=== PATIENT | female | born 2000 | race Caucasian/White ===

== ENCOUNTER 2022-07-02 21:30 | Observation (INO) ==
--- NOTE | 2022-07-03 00:29 | DR.SOBA ---
HPI Time Seen Time Seen by Provider: 07/03/22 00:29 Primary Care Physician Primary Care Physician: Kiersten HPI Comment HPI Comment: A 21 y/o female presenting with a feeling of not feeling good and a feeling that she may pass out at about 2100 hrs. this eveninng. She denies tinnitus, palpitations, nausea or vomiting. But she did have SOB. Complaints Chief Complaint:: "Short of breath, feel like i mite faint, dont feel normal" COVID-19 Coronavirus risk:travel/contact w/high risk person: No Has patient experienced Coronavirus symptoms: No Coronavirus symptoms experienced: Shortness of Breath Reviewed Nurses Notes Reviewed: Yes Source History Provided: Patient Mode of Arrival Mode of Arrival: Ambulatory Timing Onset of Chief Complaint: 07/02/22 Context Onset:: At Rest PE Risk Factors:: Control Pills History of:: None Currently on:: Neither Prehospital Care:: None Associated Signs and Symptoms Associated Signs and Symptoms: denies None, Fever, Wheeze, Cough, Nasal Congestion, Sore Throat, Hemoptysis, Chest Pain, Leg Swelling, Calf Pain, Anxiety, Numbness, Perioral Numbness, Hands Numbness or Feet Numbness PMH PMH Past Medical History: Yes Past Medical History: Anxiety Past Medical History Comment: ADHD Past Surgical History: Yes Surgical History: Appendectomy Family History History of Family Medical Conditions: Yes Family Medical History: [place] Social History Does patient currently use any type of tobacco product: Yes Type of Tobacco Use: VAPES Does any household member use tobacco: No Alcohol Use: None Do you use any recreational Drugs:: No Lives With: Mom Lives Where: Home Travel Risk Coronavirus risk:travel/contact w/high risk person: No Has patient experienced Coronavirus symptoms: No Infectious screening In the last 2 months have you had wt loss of >10#?: NO Have you had fever, night sweats or hemotysis?: No Have you traveled outside the country in the last 6 months?: No Isolation: Standard ROS Review of Systems Constitutional: No Symptoms Reported and Diaphoresis Eyes: No Symptoms Reported ENTM: No Symptoms Reported Respiratoy: No Symptoms Reported Cardiovascular: No Symptoms Reported Gastrointestinal/Abdominal: No Symptoms Reported Genitourinary: No Symptoms Reported Neurological: Dizziness Musculoskeletal: No Symptoms Reported Integumentary: No Symptoms Reported Hematologic/Lymphatic: No Symptoms Reported Endocrine: No Symptoms Reported Psychiatric: No Symptoms Reported All Other Systems: Reviewed and Negative PE Vital Signs Vitals: Temperature 98.1 F Pulse Rate 72 Respiratory Rate 20 Blood Pressure [Left Arm] 121/69 Blood Pressure 122/73 O2 Sat by Pulse Oximetry 99 General Limitations: No Limitations General Appearance: Alert and In No Apparent Distress Head Head Exam: Normal Inspection, Atraumatic and Normocephalic Eyes Eye exam: Normal Appearance and EOMI ENT ENT Exam: Normal Exam, Normal Oropharynx, Normal External Ear Exam and Mucous Membranes Moist Neck Neck Exam: Normal Inspection, Full ROM and Trachea Midline Chest Chest Inspection: Normal Inspection Respiratory Respiratory Exam: Normal Lung Sounds Bilat Cardiovascular Cardiovascular Exam: Regular Rate, Normal Rhythm, Normal Heart Sounds, +S1 and +S2 Abdominal Exam Abdominal Exam: Normal Inspection, Normal Bowel Sounds and Soft Extremities Extremities Exam: Normal Inspection and Full ROM Back Back Exam: Normal Inspection and Full ROM Neurologic Neurological Exam: Alert and Oriented X3 Psychiatric Psychiatric Exam: Normal Affect and Normal Mood Skin Skin Exam: Dry, Intact and Normal Color COURSE Treatment Treatment: BAsed on the Brain CT Scan recommendations, I had inquired about obtaining an MRI of the Brain but ti is not possible to get one done at this time of the day. I spoke to correctional officer captain Physician (Dr. Yañez) and he agreed to admit her to [facility] so we can obtain the Brain MRI done later this morning. I did discuss the CT Scan report and recommendations with the patient and her mother. Reevaluation 1st: Resolved Education/Counseling Education/Counseling: Patient, Family, Education and Counseling Educated On: Treatment, Diagnosis, Prognosis and Needs for Follow Up ROR Labs Reviewed Laboratory: SARS-CoV-2 (PCR) Negative (NEGATIVE) 07/02/22 22:36 Influenza Type A (PCR) Negative (NEGATIVE) 07/02/22 22:36 Influenza Type B (PCR) Negative (NEGATIVE) 07/02/22 22:36 RSV (PCR) Negative (NEGATIVE) 07/02/22 22:36 S. pyogenes (TEM-PCR) Not detected (NOT DETECT) 07/02/22 22:36 Opioid Opioid Risk Tool Age (Compa box if 16-45): No History of Preadolescent Sexual Abuse: No Total: 0 Total Score Risk Category: Low Risk Copyright: Alcides DARNELL predicting aberrant behaviors Discharge Plan Diagnosis Discharge Problem: Syncope Discharge Plan Patient Disposition: 09 ADMITTED INPATIENT Condition: Stable Prescriptions: No Action dextroamphetamine-amphetamine [Adderall] 20 MG tablet 10 mg PO DAILY Health Concerns: Post Hospitalization: new medications and changes needed to prevent readmission or further decline. Pt educated and given instructions on all concerns. Plan of Treatment: Continue with present treatment and follow up plan. Pt is to keep follow up appointment as instructed and take medications as ordered. Orders to Discharge Patient Discharge Orders: Transfer (Routine); Ordered 07/03/22 Ordered By: VIRI CAMACHO Follow ups/Referrals Follow ups/Referrals: ALYCIA LUNA [Primary Care Provider] - 3 days ADDITIONAL NOTES Additional Notes Additional Notes: [id number]: [id number]: [id number]: FLocation: EROrder Number(s): [id number](s):BRAIN W/O CON Ordering Physician: VIRI CAMACHO Primary Care: ALYCIA LUNA Service Date: 07/03/22 Service Time: 0120 PROCEDURE: CT Head without Contrast . HISTORY: Un easy feeling and presyncope. TECHNIQUE: Axial images were performed through the head without the administration of IV contrast with multiplanar reformations . Dose reduction techniques including Automated Exposure Control (AEC) and adjustment of mA and kV were utilized . COMPARISON: None . TECHNICAL QUALITY: Satisfactory . FINDINGS: There is diffuse decreased attenuation involving white-matter of both the cerebrum and cerebellum suggesting vasogenic edema. There is no mass or intracranial hemorrhage. Ventricles are normal size. No acute skull or scalp abnormality. Visualized sinuses and mastoids are clear. IMPRESSION: 1. Findings suspicious for vasogenic edema involving white matter of the cerebrum and cerebellum that could be related to encephalitis, toxin poisoning, or metabolic derangements. Emergency MRI with contrast is recommended for further evaluation. 2. No other significant abnormality identified. Electronically signed by: Omid Mcelroy (Jul 03, 2022 01:47:28) Report Electronically signed: 07/03/22 0149 CC: Viri Camacho
--- NOTE | 2022-07-03 01:49 | CT ---
PROCEDURE: CT Head without Contrast .HISTORY: Un easy feeling and presyncope.TECHNIQUE: Axial images were performed through the head without the administration of IV contrast with multiplanar reformations . Dose reduction techniques including Automated Exposure Control (AEC) and adjustment of mA and kV were utilized .COMPARISON: None .TECHNICAL QUALITY: Satisfactory .FINDINGS:There is diffuse decreased attenuation involving white-matter of both the cerebrum and cerebellum suggesting vasogenic edema.There is no mass or intracranial hemorrhage.Ventricles are normal size.No acute skull or scalp abnormality.Visualized sinuses and mastoids are clear.IMPRESSION:1. Findings suspicious for vasogenic edema involving white matter of the cerebrum and cerebellum that could be related to encephalitis, toxin poisoning, or metabolic derangements. Emergency MRI with contrast is recommended for further evaluation.2. No other significant abnormality identified.Electronically signed by: Omid Mcelroy (Jul 03, 2022 01:47:28)
[2022-07-03 02:31] LABS: BASOPHILS # (AUTO) 0.1 X10^3/uL (0.0-0.1); EOSINOPHILS # (AUTO) 0.1 x10^3/uL (0.0-0.2); EOSINOPHILS % (AUTO) 0.8 % (0.9-2.9); HEMATOCRIT 39.8 % (36.0-47.0); LYMPHOCYTES # (AUTO) 1.6 X10^3/uL (1.3-2.9); LYMPHOCYTES % (AUTO) 16.5 % (21.0-51.0); MEAN CORPUSCULAR HEMOGLOBIN 28.2 pg (27.0-34.0); MEAN CORPUSCULAR HGB CONC 35.1 g/dL (33.0-35.0); MEAN CORPUSCULAR VOLUME 80.4 fL (80.0-100.0); MEAN PLATELET VOLUME 9.6 fL (7.4-11.0); MONOCYTES # (AUTO) 0.5 x10^3/uL (0.3-0.8); MONOCYTES % (AUTO) 5.3 % (0.0-13.0); NEUTROPHILS # (AUTO) 7.4 x10^3/uL (2.2-4.8); NEUTROPHILS % (AUTO) 76.4 % (42.0-75.0); RED BLOOD COUNT 4.95 X10^6/uL (3.5-5.4); RED CELL DISTRIBUTION WIDTH 13.3 % (11.6-16.5); WHITE BLOOD COUNT 9.7 X10^3/uL (3.6-10.0)
[2022-07-03 02:44] LABS: ALANINE AMINOTRANSFERASE 21 Units/L (12-78); ALBUMIN 4.5 g/dL (3.4-5.0); ALKALINE PHOSPHATASE 101 Units/L (45-150); ASPARTATE AMINO TRANSFERASE 29 Units/L (15-37); BLOOD UREA NITROGEN 13 mg/dL (7-18); CALCIUM 9.3 mg/dL (8.5-10.1); CHLORIDE 98 mmol/L (98-107); CREATININE 0.82 mg/dL (0.55-1.02); SODIUM 137 mmol/L (136-145); TOTAL PROTEIN 7.8 g/dL (6.4-8.2); eGFR NON BLACK RACES > 60 (>60)
[2022-07-03 02:53] LABS: BASOPHILS % (MANUAL) 1 % (0-1); PLATELET MORPHOLOGY COMMENT NORMAL (NORMAL)
[2022-07-03] MEDS ORDERED: DEXTROAMPHETAMINE AMPHETAMINE 20 MG PO SCH (09:00)
--- NOTE | 2022-07-03 10:20 | MRI ---
HISTORYMRI Brain w/wo suggested from CT report - vasogenic edema on brain CT scanSTUDYBRAIN W W/O CONCOMPARISONCT head from same day.TECHNIQUEMultiplanar multi-sequence MRI of the brain was obtained utilizing standard departmental protocol. Sagittal and axial T1 weighted images were obtained. Axial T2 and flair weighted images were performed as well. Axial diffusion weighted and ADC trace mapping was performed. Exam performed with and without contrast.FINDINGSDiffusion imaging: [Normal, no acute infarct.]Susceptibility weighted imaging: [No abnormal susceptibility artifact.]Brain volume: [Appropriate for age.]Ventricles and basal cisterns: FLAIR bright signal in the basilar cisterns and 4th ventricle is nonspecific but often due to technical artifact. No abnormal signal in these locations on other pulse sequences. No hydrocephalus.Extra-axial spaces: [No extra-axial collection.]Cerebral parynchema: [No mass, hematoma, or mass effect.] Subtle increased FLAIR signal in the left parietal and occipital lobes such as image 15 series 901 is favored to be artifactual. No increased signal on the axial T2 or coronal T2 sequences. No pathologic enhancement in this region.Pituitary and other sagittal midline structures: [Normal.]Visualized orbits: [Distortion of the left globe image 9 axial T2 likely artifactual from eye shadow.]Paranasal sinuses and mastoid air cells: [Mild mucosal thickening in the ethmoid air cells and left maxillary sinus.]Bones: [Intact.]Other: [No pathologic enhancement postcontrast.]IMPRESSION[No diffuse vasogenic edema. Likely artifactual FLAIR signal in the basilar cisterns, 4th ventricle, and left parietal occipital cortex. This is likely a normal exam.]Electronically signed by: Anjum Cast (Jul 03, 2022 10:19:24)
--- NOTE | 2022-07-03 11:52 | DR.H&P ---
H&P History & Physical for Day of: H&P Date: 07/03/22 Chief Complaint Chief Complaint: Shortness of breath, feel like you might faint and I do not feel normal. Allergies Allergies Allergy/AdvReac Type Severity Reaction Status Date / Time amoxicillin [From Augmentin] Allergy Verified 07/02/22 22:42 clavulanic acid Allergy Verified 07/02/22 22:42 [From Augmentin] History of Present Illness History of Present Illness: This is a pleasant 21-year-old white female who presented to the [facility] emergency department for shortness of breath and not feeling normal and like she might faint. She reports her symptoms started earlier in the evening and have not gotten any better. She reports feeling weak in her extremities in the upper and lower extremities and having some numbness and tingling in her arms and legs. 2 days prior she reported neck pain that resolved on its own and the previous day she had a headache with phonophobia. That has also resolved 1 day later. She did have a CT scan of her brain in the emergency department that showed vasogenic edema. Because of this we were concerned of a neurologic problem going on such as possible encephalitis. We proceeded with MRI of the brain that did not show any vasogenic edema. Neurological exam revealed that she had sluggish pupils bilaterally. She has no known previous history of neurologic problems or any significant medical problems. Her labs are unremarkable she does not have fever nor a elevated white blood cell count. CMP is completely normal with no metabolic abnormalities either. Past Medical History Past Medical History: Anxiety Past Surgical History Surgical History: Appendectomy Family History Family Medical History: Diabetes Mellitus, Cancer, PR, Coronary Artery Disease, Sudden Cardiac and Hypertension Social History Does patient currently use any type of tobacco product: Yes (Vap) Have you used tobacco products in the last 12 months: Yes Type of Tobacco Use: VAPES Does any household member use tobacco: No Alcohol Use: Occasionally Drug Use: None Medications Home Medications: amoxicillin [From Augmentin] Allergy (Verified 07/02/22 22:42) clavulanic acid [From Augmentin] Allergy (Verified 07/02/22 22:42) Labs Result Diagrams: 07/03/22 02:15 07/03/22 02:15 Labs: Laboratory WBC 9.7 X10^3/uL (3.6-10.0) 07/03/22 02:15 RBC 4.95 X10^6/uL (3.5-5.4) 07/03/22 02:15 Hgb 14.0 g/dL (12.0-16.0) 07/03/22 02:15 Hct 39.8 % (36.0-47.0) 07/03/22 02:15 MCV 80.4 fL (80.0-100.0) 07/03/22 02:15 MCH 28.2 pg (27.0-34.0) 07/03/22 02:15 MCHC 35.1 g/dL (33.0-35.0) H 07/03/22 02:15 RDW 13.3 % (11.6-16.5) 07/03/22 02:15 Plt Count 209 X10^3/uL (150.0-450.0) 07/03/22 02:15 Plt Count Comment Adequate (ADEQUATE) 07/03/22 02:15 MPV 9.6 fL (7.4-11.0) 07/03/22 02:15 Neut % (Auto) 76.4 % (42.0-75.0) H 07/03/22 02:15 Lymph % (Auto) 16.5 % (21.0-51.0) L 07/03/22 02:15 [place] % (Auto) 5.3 % (0.0-13.0) 07/03/22 02:15 Eos % (Auto) 0.8 % (0.9-2.9) L 07/03/22 02:15 Baso % (Auto) 1.0 % (0.2-1.0) 07/03/22 02:15 Neut # (Auto) 7.4 x10^3/uL (2.2-4.8) H 07/03/22 02:15 Lymph # (Auto) 1.6 X10^3/uL (1.3-2.9) 07/03/22 02:15 [place] # (Auto) 0.5 x10^3/uL (0.3-0.8) 07/03/22 02:15 Eos # (Auto) 0.1 x10^3/uL (0.0-0.2) 07/03/22 02:15 Baso # (Auto) 0.1 X10^3/uL (0.0-0.1) 07/03/22 02:15 Absolute Nucleated RBC 0.0 /100WBC 07/03/22 02:15 Total Counted 100 07/03/22 02:15 Neutrophils % (Manual) 72 % (39-76) 07/03/22 02:15 Lymphocytes % (Manual) 21 % (13-43) 07/03/22 02:15 Monocytes % (Manual) 5 % (4-9) 07/03/22 02:15 Eosinophils % (Manual) 1 % (0-6) 07/03/22 02:15 Basophils % (Manual) 1 % (0-1) 07/03/22 02:15 Plt Morphology Comment Normal (NORMAL) 07/03/22 02:15 RBC Morphology Normal (NORMAL) 07/03/22 02:15 Sodium 137 mmol/L (136-145) 07/03/22 02:15 Corrected Sodium TNP 07/03/22 02:15 Potassium 4.0 mmol/L (3.5-5.1) 07/03/22 02:15 Chloride 98 mmol/L (98-107) 07/03/22 02:15 Carbon Dioxide 24.0 mmol/L (21-32) 07/03/22 02:15 BUN 13 mg/dL (7-18) 07/03/22 02:15 Creatinine 0.82 mg/dL (0.55-1.02) 07/03/22 02:15 Est GFR (MDRD) Af Amer > 60 (>60) 07/03/22 02:15 Est GFR (MDRD) Non-Af > 60 (>60) 07/03/22 02:15 Glucose 73 mg/dL (65-99) 07/03/22 02:15 Calcium 9.3 mg/dL (8.5-10.1) 07/03/22 02:15 Corrected Calcium TNP 07/03/22 02:15 Total Bilirubin 0.70 mg/dL (0.2-1.0) 07/03/22 02:15 AST 29 Units/L (15-37) 07/03/22 02:15 ALT 21 Units/L (12-78) 07/03/22 02:15 Alkaline Phosphatase 101 Units/L (45-150) 07/03/22 02:15 Total Protein 7.8 g/dL (6.4-8.2) 07/03/22 02:15 Albumin 4.5 g/dL (3.4-5.0) 07/03/22 02:15 Globulin 3.3 g/dL (2.5-4.5) 07/03/22 02:15 Albumin/Globulin Ratio 1.4 Ratio (1.1-2.1) 07/03/22 02:15 SARS-CoV-2 (PCR) Negative (NEGATIVE) 07/02/22 22:36 Influenza Type A (PCR) Negative (NEGATIVE) 07/02/22 22:36 Influenza Type B (PCR) Negative (NEGATIVE) 07/02/22 22:36 RSV (PCR) Negative (NEGATIVE) 07/02/22 22:36 S. pyogenes (TEM-PCR) Not detected (NOT DETECT) 07/02/22 22:36 Review of Systems Constitutional: No Symptoms Reported Eyes: No Symptoms Reported ENT: No Symptoms Reported Respiratory: No Symptoms Reported Cardiovascular: No Symptoms Reported Gastrointestinal: No Symptoms Reported Genitourinary: No Symptoms Reported Musculoskeletal: No Symptoms Reported Skin: No Symptoms Reported Neurological: Numbness and Other (Tingling of the extremities) Physical Exam Vital Signs: Temperature 98.2 F Pulse Rate [Right] 76 Pulse Rate 72 Respiratory Rate 16 Blood Pressure [Left Arm] 95/57 Blood Pressure 122/73 O2 Sat by Pulse Oximetry 98 Oriented: Normal, Time, Person and Place Eyes: Other (Pupillary light reflexes are sluggish bilateral) Ear: Normal Nose: Normal Throat: Normal Respiratory: Clear Throughout Cardiovascular: Normal Auscultation: Bowel Sounds: Normal Palpation: Normal Tenderness: Normal Skin: Normal Musculoskeletal: Normal Psychiatric: Normal Mood Description: Calm Affect: Normal Speech Pattern: Clear Assessment/Plan (1) Vasogenic brain edema: Narrative Support Text: CT of the brain showed vasogenic edema however when we proceeded to the MRI of the brain showed no vasogenic edema. However the patient does have some neurological signs such as sluggish pupil reflexes bilaterally and some recent neurological symptoms that have resolved since original onset 3 days ago. Status: Acute Plan: I am going to see if our general surgeon can do a lumbar puncture to rule out possible early encephalitis. I am also going to check an RPR on this patient about the possibility of syphilitic symptoms. (2) Dyspnea: Status: Resolved (3) Dizziness: Status: Acute Review H&P Reviewed: Yes Patient was examined?: Yes
[2022-07-03] MEDS ORDERED: TYLENOL 325 MG TAB PO PRN (12:24)
[2022-07-03 23:41] VITALS: BP 110/71
== END 2022-07-03 20:00 | disposition short-term general hospital (02) ==
LOC: MED/SURG 21:47 → ER 21:47 → MED/SURG 07-03 02:49
PROVIDERS: ADMIT Family Medicine; ATTEND Family Medicine